=== PATIENT | male | born 1945 | race Caucasian/White ===

== ENCOUNTER 2019-12-04 21:10 | Emergency (ER) | payer MEDICARE, BC ==
[2019-12-04 21:21] VITALS: BP 161/83; PULSE 69
[2019-12-04 21:51] LABS: ANION GAP 12.6 mEq/L (7-13)
[2019-12-04] MEDS ORDERED: Aspirin 81 MG Tab.Chew PO ONE (22:12)
[2019-12-04] MEDS ORDERED: Heparin Sodium 5,000 Units/ML Vial IVPUSH ONE (22:12)
--- NOTE | 2019-12-04 22:18 | EDM.PDOC ---
ED HPI GENERAL MEDICAL PROBLEM - General Chief Complaint: Chest Pain Stated Complaint: PAINS IN THE MIDDLE OF HIS CHEST Time Seen by Provider: 12/04/19 22:13 Source of Information: Reports: Patient, Family History Limitations: Reports: No Limitations - History of Present Illness INITIAL COMMENTS - FREE TEXT/NARRATIVE: pt states been having mid sternal chest pain on-off past 2 weeks. tonight got worse after eating pizza and drinking some milk. right now pain gone. Mid-Sternal Chest Pain Score (Numeric/FACES): 9 - Related Data Allergies Allergy/AdvReac Type Severity Reaction Status Date / Time No Known Allergies Allergy Verified 12/04/19 21:20 Home Meds: Home Meds Levothyroxine Sodium [Synthroid] 25 mcg PO DAILY 12/04/19 [History] lisinopriL [Prinivil] 10 mg PO DAILY 12/04/19 [History] Past Medical History HEENT History: Reports: Impaired Vision Other HEENT History: blind in right eye Cardiovascular History: Reports: Hypertension, [place] Respiratory History: Reports: None Gastrointestinal History: Reports: None Genitourinary History: Reports: BPH Other Genitourinary History: prostate surgery x 2 Musculoskeletal History: Reports: None Neurological History: Reports: None Psychiatric History: Reports: None Endocrine/Metabolic History: Reports: Hyperthyroidism Hematologic History: Reports: None Immunologic History: Reports: None Oncologic (Cancer) History: Reports: None Dermatologic History: Reports: None - Infectious Disease History Infectious Disease History: Reports: None - Past Surgical History Head Surgeries/Procedures: Reports: None GI Surgical History: Reports: Other (See Below) Other GI Surgeries/Procedures: "ruptured stomach and part of stomach replaced" Male Surgical History: Reports: TURP-Transurethral Resection of Prostate Social & Family History - Family History Family Medical History: Noncontributory - Tobacco Use Smoking Status *Q: Never Smoker Second Hand Smoke Exposure: No - Caffeine Use Caffeine Use: Reports: Coffee - Recreational Drug Use Recreational Drug Use: No - Living Situation & Occupation Living situation: Reports: with Family ED ROS GENERAL - Review of Systems Review Of Systems: Comprehensive ROS is negative, except as noted in HPI. ED EXAM, GENERAL - Physical Exam Exam: See Below Exam Limited By: No Limitations General Appearance: Alert, WD/WN, No Apparent Distress Ears: Hearing Grossly Normal Throat/Mouth: Normal Voice, No Airway Compromise Head: Atraumatic Neck: Non-Tender, Full Range of Motion Respiratory/Chest: No Respiratory Distress Cardiovascular: Regular Rate, Rhythm GI/Abdominal: Soft, Non-Tender (Male) Exam: Deferred Rectal (Males) Exam: Deferred Neurological: Alert, Oriented, Normal Cognition, Normal Gait, No Motor/Sensory Deficits Psychiatric: Normal Affect, Normal Mood Skin Exam: Warm, Dry, Normal Color Lymphatic: No Adenopathy Course - Vital Signs Last Recorded V/S: Last Vital Signs Temp 36.7 C 12/04/19 21:14 Pulse 69 12/04/19 21:14 Resp 20 12/04/19 21:14 BP 161/83 H 12/04/19 21:14 Pulse Ox 97 12/04/19 21:14 - Orders/Labs/Meds Labs: Laboratory Tests 12/04/19 12/04/19 12/04/19 Range/Units 21:25 21:25 21:25 WBC 7.6 (5.0-10.0) 10^3/uL RBC 4.76 (4.6-6.2) 10^6/uL Hgb 14.5 (14.0-18.0) g/dL Hct 43.8 (40.0-54.0) % MCV 92.0 (80-100) fL MCH 30.5 (27.0-34.0) pg MCHC 33.1 (33.0-35.0) g/dL Plt Count 184 (150-450) 10^3/uL Neut % (Auto) 66.1 (42.2-75.2) % Lymph % (Auto) 24.4 (20.5-50.1) % [place] % (Auto) 8.5 H (2-8) % Eos % (Auto) 0.7 L (1.0-3.0) % Baso % (Auto) 0.3 (0.0-1.0) % PT 10.2 (9.0-12.0) SEC INR 1.1 (0.9-1.2) APTT 24.4 (22.0-34.0) SEC Sodium 143 (136-145) mmol/L Potassium 3.6 (3.5-5.1) mmol/L Chloride 106 (98-107) mmol/L Carbon Dioxide 28 (21-32) mmol/L Anion Gap 12.6 (7-13) mEq/L BUN 15 (7-18) mg/dL Creatinine 1.28 (0.70-1.30) mg/dL Est Cr Clr Drug Dosing 53.89 mL/min Estimated GFR (MDRD) 55 BUN/Creatinine Ratio 11.7 (No establ ref range) Glucose 118 H (74-99) mg/dL Calcium 8.7 (8.5-10.1) mg/dL Total Bilirubin 0.4 (0.2-1.0) mg/dL AST 18 (15-37) U/L ALT 21 (16-63) U/L Alkaline Phosphatase 46 (46-116) U/L Troponin I 0.661 H* (0.000-0.056) ng/mL Total Protein 6.4 (6.4-8.2) g/dL Albumin 3.5 (3.4-5.0) g/dL Globulin 2.9 Albumin/Globulin Ratio 1.2 SARS CoV-2 RNA Rapid SEDRICK (NEGATIVE) 12/04/19 Range/Units 22:37 WBC (5.0-10.0) 10^3/uL RBC (4.6-6.2) 10^6/uL Hgb (14.0-18.0) g/dL Hct (40.0-54.0) % MCV (80-100) fL MCH (27.0-34.0) pg MCHC (33.0-35.0) g/dL Plt Count (150-450) 10^3/uL Neut % (Auto) (42.2-75.2) % Lymph % (Auto) (20.5-50.1) % [place] % (Auto) (2-8) % Eos % (Auto) (1.0-3.0) % Baso % (Auto) (0.0-1.0) % PT (9.0-12.0) SEC INR (0.9-1.2) APTT (22.0-34.0) SEC Sodium (136-145) mmol/L Potassium (3.5-5.1) mmol/L Chloride (98-107) mmol/L Carbon Dioxide (21-32) mmol/L Anion Gap (7-13) mEq/L BUN (7-18) mg/dL Creatinine (0.70-1.30) mg/dL Est Cr Clr Drug Dosing mL/min Estimated GFR (MDRD) BUN/Creatinine Ratio (No establ ref range) Glucose (74-99) mg/dL Calcium (8.5-10.1) mg/dL Total Bilirubin (0.2-1.0) mg/dL AST (15-37) U/L ALT (16-63) U/L Alkaline Phosphatase (46-116) U/L Troponin I (0.000-0.056) ng/mL Total Protein (6.4-8.2) g/dL Albumin (3.4-5.0) g/dL Globulin Albumin/Globulin Ratio SARS CoV-2 RNA Rapid SEDRICK Negative (NEGATIVE) Meds: Medications Discontinued Medications Generic Name Dose Route Start Last Admin Trade Name Freq PRN Reason Stop Dose Admin Aspirin 324 mg 12/04/19 22:12 12/04/19 22:23 Aspirin PO 12/04/19 22:13 324 mg ONETIME ONE Administration Heparin Sodium (Porcine) 4,000 units 12/04/19 22:12 12/04/19 22:24 Heparin Sodium IVPUSH 12/04/19 22:13 4,000 units .BOLUS ONE Administration Morphine Sulfate 2 mg 12/04/19 22:20 12/04/19 22:30 Morphine IVPUSH 12/04/19 22:21 2 mg ONETIME ONE Administration Ondansetron HCl 4 mg 12/04/19 22:20 12/04/19 22:29 Zofran IVPUSH 12/04/19 22:21 4 mg ONETIME ONE Administration - Re-Assessments/Exams Free Text/Narrative Re-Assessment/Exam: 12/04/19 22:[address] Guerin who evaluated the fax EKG and elevated trop was related, Dr Burgos rec pt to be transf to [facility]. pt became reluctant to go since his pain is gone. pt and are arguing over this issue. 12/04/19 22:37 pt finally concurred. [facility] diversion. [place] diversion. [place] diversion. 12/04/19 22:58 after extensive talking with the pt and his spouse the pt wants to leave AMA despite the risk of . Departure - Departure Time of Disposition: 23:00 Disposition: Against Medical Advice 07 Condition: Fair Clinical Impression: Acute coronary syndrome, Elevated troponin I level, Non compliance with medical treatment Forms: Refusal of Care AMA Sepsis Event Note (ED) - Evaluation Sepsis Screening Result: No Definite Risk - Focused Exam Vital Signs: Vital Signs Temp Pulse Resp BP Pulse Ox 12/04/19 21:14 36.7 C 69 20 161/83 H 97
[2019-12-04] MEDS ORDERED: Ondansetron 4 MG/2 ML SDV IVPUSH ONE (22:20)
[2019-12-04] MEDS ORDERED: Morphine 2 MG/ML SYRINGE IVPUSH ONE (22:20)
[2019-12-04 22:32] LABS: PTT,PARTIAL THROMBOPLSTIN TIME 24.4 SEC (22.0-34.0)
== END 2019-12-04 23:01 | disposition left against medical advice (07) ==
LOC: DL.ED 21:10
DX: I24.9 Acute ischemic heart disease, unspecified (principal); R79.89 Other specified abnormal findings of blood chemistry; Z91.14 Patient's other noncompliance with medication regimen; I10 Essential (primary) hypertension; I25.2 Old myocardial infarction; E05.90 Thyrotoxicosis, unspecified without thyrotoxic crisis or storm; Z79.899 Other long term (current) drug therapy; Z20.828 Contact with and (suspected) exposure to other viral communicable diseases
CPT/HCPCS: 36415; 80053; 84484; 85025; 85610; 85730; 93005; 96374; 96375; 99285-25; A9270-GY; J1644; J2270; J2405; U0002